=== PATIENT | male | born 1995 | race Caucasian/White ===

== ENCOUNTER 2018-05-05 05:22 | Emergency (ER) | payer OTHER ==
[~2018-05-05] VITALS: Ht 180.3 cm; Wt 68.2 kg
[~2018-05-05 05:22] MED LIST: ATARAX 25MG25 MG/TAB PO; DOXYCYCLINE 10100 MG PO
[2018-05-05 05:28] VITALS: BP 123/79; TEMP 97.4
[2018-05-05] MEDS ORDERED: DOXYCYCLINE 10100 MG PO (05:43)
[2018-05-05] MEDS ORDERED: CEPHALEXIN500 M1 PO (05:43)
[2018-05-05 06:00] VITALS: PULSE 85
== END 2018-05-05 06:01 | disposition home or self-care (01) ==
LOC: COL.ER 05:22
DX: H66.42 Suppurative otitis media, unspecified, left ear (principal)

== ENCOUNTER 2019-03-16 04:12 | Emergency (ER) | payer OTHER ==
[~2019-03-16] VITALS: Ht 180.3 cm; Wt 68.2 kg
[~2019-03-16 04:12] MED LIST changes: +CEPHALEXIN500 M1 PO
[2019-03-16 04:19] VITALS: BP 133/81; PULSE 79; TEMP 96.9
[2019-03-16] MEDS ORDERED: CLEOCIN HCL300 MG PO (04:38)
== END 2019-03-16 05:05 | disposition home or self-care (01) ==
LOC: COL.ER 04:12
DX: K02.9 Dental caries, unspecified (principal)

== ENCOUNTER 2019-11-01 23:06 | Emergency (ER) | payer OTHER ==
[~2019-11-01] VITALS: Ht 180.3 cm; Wt 77.7 kg
[~2019-11-01 23:06] MED LIST changes: +CLEOCIN HCL300 MG PO
[2019-11-01 23:10] VITALS: BP 123/77; TEMP 98.8
[2019-11-02] MEDS ORDERED: CLEOCIN HCL300 MG PO (00:10)
[2019-11-02] MEDS ORDERED: ULTRAM 50MG TAB50 MG PO (00:10)
[2019-11-02 00:26] VITALS: PULSE 85
== END 2019-11-02 00:27 | disposition home or self-care (01) ==
LOC: COL.ER 23:06
DX: K02.9 Dental caries, unspecified (principal)

== ENCOUNTER 2021-06-23 11:50 | Emergency (ER) | payer SELFPAY ==
[~2021-06-23] VITALS: Ht 180.3 cm; Wt 77.3 kg
[~2021-06-23 11:50] MED LIST changes: +ULTRAM 50MG TAB50 MG PO
[2021-06-23 12:56] LABS: HEMATOCRIT 49.9 % (42.0-52.0); HEMOGLOBIN 16.8 g/dl (13.5-18.0); MEAN CELL VOLUME 94 fl (80.0-100.0); MEAN CORPUSCULAR HEMOGLOBIN 32 pg (27-31); MEAN CORPUSCULAR HGB CONC 34 g/dl (33.0-37.0); PLATELET COUNT 308 K/mm3 (130-400); RED BLOOD COUNT 5.33 M/mm3 (4.20-5.60); REDCELL DISTRIBUTION WIDTH-CV 12.7 % (11.5-14.5)
[2021-06-23 13:17] LABS: CALCIUM 10.1 mg/dL (8.4-10.2); CREATININE, serum 1.11 mg/dL (0.72-1.25); POTASSIUM 4.3 mmol/L (3.5-4.5); TOTAL PROTEIN 9.1 gm/dL (6.2-8.1)
[2021-06-23 13:33] LABS: BAND 1 % (0-10); LYMPHOCYTE 2 % (20.0-51.0); NEUTROPHILS 97 % (42.0-75.2); PLATELET ESTIMATE NORMAL (NORMAL); TOXIC GRANULATION PRESENT
[2021-06-23] MEDS ORDERED: ZOFRAN ODT4 MG PO (15:13)
[2021-06-23 15:21] LABS: COLLECTION METHOD CLEAN CATCH
[2021-06-23 15:24] VITALS: BP 132/77; PULSE 89; TEMP 98.1
[2021-06-23 15:33] LABS: MUCOUS Present (NOT PRESENT); PH 6 (5-8); SQUAMOUS EPITHELIAL None Seen /hpf (0-10); URINE APPEARANCE Clear (CLEAR/HAZY); URINE BACTERIA None Seen (NONE SEEN); URINE BILIRUBIN Negative (NEGATIVE); URINE BLOOD Negative (NEGATIVE); URINE COLOR Straw (YELLOW); URINE GLUCOSE Negative (NEGATIVE); URINE KETONE 1+ (NEGATIVE); URINE LEUKOCYTE ESTERASE Negative (NEGATIVE); URINE NITRATE Negative (NEGATIVE); URINE PROTEIN(semi-quant) Negative (NEGATIVE); URINE RBC 0-2 /hpf (0-2); URINE UROBILINOGEN Negative (NEGATIVE)
== END 2021-06-23 15:27 | disposition home or self-care (01) ==
LOC: COL.ER 11:50
PROVIDERS: Nurse Practitioner; Student in an Organized Health Care Education/Training Program
DX: R11.2 Nausea with vomiting, unspecified (principal); R19.7 Diarrhea, unspecified; R10.30 Lower abdominal pain, unspecified
CPT/HCPCS: J2405; J7030; Q9967

== ENCOUNTER 2022-10-08 02:04 | Emergency (ER) | payer SELFPAY ==
[~2022-10-08] VITALS: Ht 180.3 cm; Wt 84.1 kg
[~2022-10-08 02:04] MED LIST changes: +AMOXICILLIN 50500 MG PO; +ZOFRAN ODT4 MG PO
[2022-10-08 02:14] VITALS: TEMP 97.5
[2022-10-08 02:36] LABS: STREP SCREEN NEGATIVE
[2022-10-08 02:50] VITALS: BP 142/78; PULSE 76
== END 2022-10-08 02:52 | disposition home or self-care (01) ==
LOC: COL.ER 02:04
PROVIDERS: Physician Assistant
DX: J02.8 Acute pharyngitis due to other specified organisms (principal); B97.89 Other viral agents as the cause of diseases classified elsewhere; R59.0 Localized enlarged lymph nodes; Z28.310 Unvaccinated for COVID-19